=== PATIENT | female | born 1980 | race Two or more races ===

== ENCOUNTER 2025-06-26 12:54 | Outpatient (CLI) | payer OTHER | END 2025-06-26 12:55 | disposition home or self-care (01) | LOC: CSHDTY/OP 12:54 | PROVIDERS: ATTEND Surgery | DX: E66.01 Morbid (severe) obesity due to excess calories (principal); Z68.44 Body mass index [BMI] 60.0-69.9, adult | CPT/HCPCS: 97802 ==